=== PATIENT | female | born 1990 | race Caucasian/White ===

== ENCOUNTER 2018-10-05 17:45 | Inpatient (IN) | payer MEDICAID ==
[~2018-10-05] VITALS: Ht 149.9 cm; Wt 82.5 kg
[2018-10-05 18:16] VITALS: Ht 149.9 cm; Wt 82.5 kg
[2018-10-05 18:17] VITALS: BP 119/61; PULSE 102; RESP 15
--- NOTE | 2018-10-05 18:49 | HP ---
Date/Time of Note Date/Time of Note DATE: 10/05/18 TIME: 18:46 OB - History Hx of Present Chief Complaint: uncontrolled DM Estimated Due Date: Apr 21, 2019 : 1 Para: 0 Spontaneous : 0 Therapeutic : 0 Ultrasounds: Other (normal first trimester ultrasound) Obstetrical Complications: Gestational Diabetes Medical Complications: None Past Family/Social History * Past Medical, Surgical, Family and Obstetric Histories reviewed from chart. OB Admission Exam Vital Signs Vital Signs Vital Signs Date Temp Pulse Resp B/P (MAP) Pulse Ox O2 O2 Flow FiO2 Time Delivery Rate 10/05/18 98.6 102 15 119/61 Room Air 18:17 (80) Physical Exam HEENT: WNL Heart: Rhythm Normal Lungs: Clear, Equal Abdomen: WNL Extremities: Normal Reflexes: Normal Last 72 hourBlood Glucose Bedside Glucose - 72 Hours Test 10/05/18 18:21 Bedside Glucose 98 mg/dL (70-220) OB Assessment/Plan Reason for admission: other Other Assessment: 11 weeks and 5 days Uncontrolled DM Plan: Other Other plan: Admit Perinatology consult ADA diet Accu checks KADEEM VAZ MD Oct 05, 2018 18:49
[2018-10-05] MEDS ORDERED: GLUCOSE GEL 15 GRAM TUBE PO PRN ×2 (19:30)
[2018-10-05] MEDS ORDERED: DEXTROSE 50% 50 ML SYRINGE IV PRN ×2 (19:30)
[2018-10-05] MEDS ORDERED: GLUCAGON 1 MG INJ IM PRN (19:30)
[2018-10-05] MEDS ORDERED: GLUCOSE GEL 15 GRAM TUBE BUCCAL PRN (19:30)
[2018-10-05] MEDS: ACCU-CHEK XX SCH ×3 (20:31→22:43)
[2018-10-05] MEDS: INSULIN ASPART [NOVOLOG] 3 ML PEN SC SCH (22:45)
[2018-10-06] MEDS: ACCU-CHEK XX SCH ×6 (08:53→19:28)
[2018-10-06] MEDS: INSULIN ASPART [NOVOLOG] 3 ML PEN SC SCH ×3 (08:54→17:05)
[2018-10-06] MEDS ORDERED: PRENATAL VITAMIN PO SCH (09:00)
--- NOTE | 2018-10-06 18:21 | QN ---
Documentation Comment No complaint Afebrile VSS Blood glucose controlled with diet D/C home KADEEM VAZ MD Oct 06, 2018 18:21
--- NOTE | 2018-10-06 18:21 | DS ---
Date/Time of Note Date/Time of Note DATE: 10/06/18 TIME: 18:21 Obstetrical Discharge Record Final Diagnosis Final Diagnosis: not delivered Complications Gestational Diabetes Condition on Discharge Physical Assessment Voiding: Yes Bowel Movement: Yes Calf Tenderness: No Patient Condition: Stable KADEEM VAZ MD Oct 06, 2018 18:21
== END 2018-10-06 21:00 | disposition home or self-care (01) | DRG 833 ==
LOC: L-D 17:45
PROVIDERS: ADMIT Obstetrics & Gynecology; ATTEND Obstetrics & Gynecology
DX: O24.410 Gestational diabetes mellitus in pregnancy, diet controlled (principal); Z3A.11 11 weeks gestation of pregnancy
CPT/HCPCS: 82565; 82575; 82962; 83036; 84156; 93005; J1815

== ENCOUNTER 2019-02-20 17:21 | Outpatient (CLI) | payer MEDICAID ==
[~2019-02-20] VITALS: Ht 147.3 cm; Wt 84.4 kg
[2019-02-20 18:10] VITALS: BP 118/64; PULSE 106; RESP 18; Ht 147.3 cm; Wt 84.4 kg
[2019-02-20] MEDS ORDERED: PREN-99 PO (18:15)
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
== END 2019-02-20 21:30 | disposition home or self-care (01) ==
LOC: OBT 17:21 → L-D 17:22 → OBT 21:30
PROVIDERS: ATTEND Obstetrics & Gynecology
DX: O24.410 Gestational diabetes mellitus in pregnancy, diet controlled (principal); Z3A.31 31 weeks gestation of pregnancy
CPT/HCPCS: 76817; 76818; 81001; 85025; 85460; 86850; 86900; 86901; Z7500; G0463

== ENCOUNTER 2019-04-07 17:16 | Inpatient (IN) | payer MEDICAID ==
[~2019-04-07] VITALS: Ht 147.3 cm; Wt 87.1 kg
[~2019-04-07 17:16] MED LIST: FERR134T PO; PREN-99 PO
[2019-04-07 17:30] VITALS: BP 118/76; PULSE 103; RESP 18; Ht 147.3 cm; Wt 87.1 kg
[2019-04-07] MEDS ORDERED: LACTATED RINGER'S 1,000 ML IV ONE (20:00)
[2019-04-07] MEDS: LACTATED RINGER'S 1,000 ML IV SCH (21:34)
[2019-04-08] MEDS: LACTATED RINGER'S 1,000 ML IV SCH (04:18)
[2019-04-08] MEDS ORDERED: ACCU-CHEK XX SCH (06:00)
== END 2019-04-08 11:00 | disposition home or self-care (01) | DRG 833 ==
LOC: OBT 17:16 → L-D 17:17 → OBT 19:30
PROVIDERS: ADMIT Obstetrics & Gynecology; ATTEND Obstetrics & Gynecology
DX: O41.03X0 Oligohydramnios, third trimester, not applicable or unspecified (principal); Z3A.38 38 weeks gestation of pregnancy; O24.419 Gestational diabetes mellitus in pregnancy, unspecified control
CPT/HCPCS: 76815; 76818; 82962; G0463; J7120

== ENCOUNTER 2019-04-09 17:59 | Inpatient (IN) | payer MEDICAID ==
[~2019-04-09] VITALS: Ht 147.3 cm; Wt 87.7 kg
[2019-04-09 20:06] VITALS: BP 116/77; PULSE 100; RESP 15; Ht 147.3 cm; Wt 87.7 kg
[2019-04-09] MEDS ORDERED: LACTATED RINGER'S 1,000 ML IV PRN (21:51)
[2019-04-09] MEDS ORDERED: CARBOPROST 250 MCG/ML VIAL IM PRN (22:00)
[2019-04-09] MEDS ORDERED: METHYLERGONOVINE 0.2 MG INJ IM PRN (22:00)
[2019-04-09] MEDS ORDERED: OXYTOCIN 30 UNITS/LR 500 ML IV PRN (22:00)
[2019-04-09] MEDS ORDERED: OXYTOCIN 30 UNITS/LR 500 ML IV SCH ×2 (22:00)
[2019-04-09] MEDS ORDERED: LIDOCAINE 1% (MPF) 30 ML INJ INJ PRN (22:00)
[2019-04-09] MEDS ORDERED: MISOPROSTOL 200 MCG TAB PR PRN (22:00)
[2019-04-09] MEDS: LACTATED RINGER'S 1,000 ML IV SCH (22:50)
[2019-04-09] MEDS: MISOPROSTOL 50 MCG CAPSULE PO SCH (23:32)
[2019-04-10] MEDS ORDERED: MISOPROSTOL 50 MCG CAPSULE PO SCH (01:00)
[2019-04-10] MEDS: MISOPROSTOL 50 MCG CAPSULE PO SCH ×4 (03:38→15:35)
[2019-04-10] MEDS: LACTATED RINGER'S 1,000 ML IV SCH ×3 (03:41→20:21)
[2019-04-10] MEDS ORDERED: OXYTOCIN 30 UNITS/LR 500 ML IV SCH (18:30)
[2019-04-10] MEDS: DEXTROSE 5%-LR 1,000 ML IV PRN (21:38)
[2019-04-11] MEDS: LACTATED RINGER'S 1,000 ML IV SCH ×3 (05:51→20:51)
[2019-04-11] MEDS: DEXTROSE 5%-LR 1,000 ML IV PRN (06:11)
[2019-04-11] MEDS ORDERED: FENTAnyl 2MCG/ML-ROPIV 0.2% 100 ML ONE (12:14)
[2019-04-11] MEDS ORDERED: FENTAnyl 2MCG/ML-ROPIV 0.2% 100 ML BAG EPI SCH (12:30)
[2019-04-11] MEDS ORDERED: ONDANSETRON 4 MG INJ IV PRN (12:30)
[2019-04-11] MEDS ORDERED: NALOXONE (0.4 MG/ML) INJ IV PRN (12:30)
[2019-04-11] MEDS ORDERED: DIPHENHYDRAMINE 50 MG INJ IV PRN (12:30)
[2019-04-11] MEDS ORDERED: ACETAMINOPHEN 325 MG TAB PO ONE (19:00)
[2019-04-11] MEDS ORDERED: GENTAMICIN 120 MG/NS (PMX) 100 ML IVPB SCH (20:00)
[2019-04-11] MEDS ORDERED: CLINDAMYCIN 900 MG (PMX) 50 ML IVPB SCH ×2 (22:00)
[2019-04-11 23:50] VITALS: BP 127/65; PULSE 63; RESP 19
[2019-04-12] MEDS ORDERED: BENZOCAINE 20% 56 ML SPRAY TOP PRN (00:30)
[2019-04-12] MEDS ORDERED: WITCH HAZEL/GLYCERIN PAD PR PRN (00:30)
[2019-04-12] MEDS ORDERED: CARBOPROST 250 MCG/ML VIAL IM PRN (00:30)
[2019-04-12] MEDS ORDERED: MISOPROSTOL 200 MCG TAB PR PRN (00:30)
[2019-04-12] MEDS ORDERED: METHYLERGONOVINE 0.2 MG INJ IM PRN (00:30)
[2019-04-12] MEDS ORDERED: OXYCODONE/ASPIRIN (4.88/325) TAB PO PRN ×2 (00:30)
[2019-04-12] MEDS ORDERED: ZOLPIDEM 5 MG TAB PO PRN (00:30)
[2019-04-12] MEDS ORDERED: OXYTOCIN 30 UNITS/LR 500 ML IV PRN (00:30)
[2019-04-12] MEDS ORDERED: LANOLIN HPA 1 PKT TOP PRN (00:30)
[2019-04-12] MEDS: IBUPROFEN 600 MG TAB PO SCH ×5 (00:40→23:51)
[2019-04-12 03:00] VITALS: BP 119/56; PULSE 66; RESP 19
[2019-04-12] MEDS ORDERED: GENTAMICIN 80 MG/NS (PMX) 50 ML IVPB SCH (04:00)
[2019-04-12 08:00] VITALS: BP 107/64; PULSE 60; RESP 17
[2019-04-12] MEDS: SENNA/DOCUSATE NA (8.6MG/50MG) TAB PO SCH ×2 (10:13→21:19)
[2019-04-12 12:00] VITALS: BP 108/65; PULSE 89; RESP 17
[2019-04-12 16:00] VITALS: BP 91/55; PULSE 75; RESP 16
[2019-04-12 19:30] VITALS: BP 106/60; PULSE 75; RESP 20
[2019-04-13 03:30] VITALS: BP 107/60; PULSE 89; RESP 18
[2019-04-13] MEDS: IBUPROFEN 600 MG TAB PO SCH ×2 (05:38→12:10)
[2019-04-13 08:00] VITALS: BP 101/60; PULSE 66; RESP 16
[2019-04-13] MEDS ORDERED: DIPHTH/TET/ACEL PERTUSS (ADULT) 0.5 ML VIAL IM* ONE (09:00)
[2019-04-13] MEDS: SENNA/DOCUSATE NA (8.6MG/50MG) TAB PO SCH (09:16)
[2019-04-13] MEDS ORDERED: MEASLES,MUMPS,RUBELLA VACCINE INJ SC* ONE (12:00)
== END 2019-04-13 13:45 | disposition home or self-care (01) | DRG 806 ==
LOC: L-D 17:59 → ZBAR 17:59 → L-D 18:52 → ZBAR 21:30 → L-D 22:55 → PP1 04-11 23:46
PROVIDERS: ADMIT Obstetrics & Gynecology; ATTEND Obstetrics & Gynecology
PROC: 10E0XZZ Delivery of Products of Conception, External Approach (ICD-10-PCS; principal; 2019-04-11)
DX: O24.429 Gestational diabetes mellitus in childbirth, unspecified control (principal); O41.03X0 Oligohydramnios, third trimester, not applicable or unspecified; Z37.0 Single live birth; O69.81X0 Labor and delivery complicated by cord around neck, without compression, not applicable or unspecified; Z3A.38 38 weeks gestation of pregnancy
CPT/HCPCS: 62322; 81003; 82947; 82962; 85025; 85610; 85730; 86592; 86850; 86900; 86901; 88307; 90715; 99464; G0463; J1580; J2590; J3010; J7120